=== PATIENT | female | born 1950 | race Two or more races ===

== ENCOUNTER 2017-12-11 08:32 | Outpatient (CLI) | payer OTHER | END 2017-12-11 08:40 | disposition home or self-care (01) | LOC: RAD 501 08:32 | DX: M17.12 Unilateral primary osteoarthritis, left knee (principal) ==

== ENCOUNTER → 2017-12-12 08:53 | Outpatient (CLI) | payer OTHER | END | disposition home or self-care (01) | LOC: LAB 08:53 | DX: E21.2 Other hyperparathyroidism (principal); E88.89 Other specified metabolic disorders; M81.8 Other osteoporosis without current pathological fracture; E56.1 Deficiency of vitamin K; E55.9 Vitamin D deficiency, unspecified; M89.8X8 Other specified disorders of bone, other site ==

== ENCOUNTER 2022-05-07 07:18 | Outpatient (CLI) | payer OTHER | END 2022-05-07 07:21 | disposition home or self-care (01) | LOC: NUCLEAR 07:18 | PROVIDERS: ATTEND Internal Medicine Cardiovascular Disease | DX: I25.10 Atherosclerotic heart disease of native coronary artery without angina pectoris (principal) | CPT/HCPCS: 78452; 93017; A9500 ==

== ENCOUNTER 2023-09-18 10:13 | Outpatient (CLI) | payer OTHER | END 2023-09-18 10:18 | disposition home or self-care (01) | LOC: RAD 10:13 | PROVIDERS: ATTEND Internal Medicine Cardiovascular Disease | DX: M72.2 Plantar fascial fibromatosis (principal) ==

== ENCOUNTER 2024-05-13 08:52 | Emergency (ER) | payer OTHER ==
[~2024-05-13] VITALS: Ht 175.3 cm; Wt 77.1 kg
[2024-05-13] MEDS ORDERED: KETOROLAC TROMETHAMINE 30 MG VIAL IV ONE (10:00)
[2024-05-13 10:59] LABS: HEMOGLOBIN 14.9 g/dL (12.0-15.00); MEAN CORPUSCULAR HEMOGLOBIN 31.5 pg (27.00-32.0); MEAN CORPUSCULAR HGB CONC 33.2 g/dl (32.0-36.0); PLATELET COUNT 266 K/uL (150-450); RED BLOOD COUNT 4.74 M/uL (4.00-6.00); RED CELL DISTRIBUTION WIDTH 13.8 % (11.5-14.5)
[2024-05-13 12:08] LABS: ALBUMIN 4.2 gm/dL (3.4-5.0); BILIRUBIN TOTAL 0.74 mg/dL (0.3-1.2); CALCIUM 10.2 mg/dL (8.5-10.1); GFR 54.2; POTASSIUM 4.4 mEq/L (3.5-5.1); TOTAL PROTEIN 8.2 gm/dL (6.4-8.2)
== END 2024-05-13 13:28 | disposition home or self-care (01) ==
LOC: ER 08:53
PROVIDERS: General Practice
DX: I50.9 Heart failure, unspecified (principal); R07.89 Other chest pain; R05.9 Cough, unspecified

== ENCOUNTER 2024-09-10 09:18 | Outpatient (CLI) | payer OTHER | END 2024-09-10 09:23 | disposition home or self-care (01) | LOC: NUCLEAR 09:18 | PROVIDERS: ATTEND Internal Medicine | DX: I87.2 Venous insufficiency (chronic) (peripheral) (principal) ==

== ENCOUNTER 2024-09-21 10:26 | Outpatient (CLI) | payer OTHER | END 2024-09-21 10:27 | disposition home or self-care (01) | LOC: NUCLEAR 10:26 | PROVIDERS: ATTEND Internal Medicine | DX: R60.9 Edema, unspecified (principal) ==

== ENCOUNTER 2024-12-08 08:33 | Outpatient (CLI) | payer OTHER | END 2024-12-08 08:41 | disposition home or self-care (01) | LOC: TOM 08:33 | PROVIDERS: ATTEND Internal Medicine Cardiovascular Disease | DX: J44.9 Chronic obstructive pulmonary disease, unspecified (principal) ==